=== PATIENT | female | born 1985 | race Caucasian/White ===

== ENCOUNTER 2017-09-26 00:24 | Emergency (ER) | payer SELFPAY ==
--- NOTE | 2017-09-26 00:45 | NUR ---
during triage assessment, patient states she has no insurance and ask for my medical advice for pink eye. i told patient i recomend staying and seeing a MD, but the common causes for pink eye are bacterial or viral, antibiotics may be needed if the doctor seems it necessary, but it will not work for viral pink eye. patient then said she will follow up with a urgent care if it doenst get better in the next few days. i followed with we have no problem seeing you, if you stay you will be seen by an MD, patient decided to she did not want to stay for MD evaluation and left [facility]
== END 2017-09-26 00:49 | disposition left against medical advice (07) ==
LOC: ER 00:26
DX: Z53.21 Procedure and treatment not carried out due to patient leaving prior to being seen by health care provider (principal)